=== PATIENT | male | born 1945 | race Caucasian/White ===

== ENCOUNTER 2018-11-14 11:57 | Inpatient (IN) ==
[2018-11-14] MEDS ORDERED: MoRPHine SULFATE 4 MG/ML 1 ML CARP\\VIAL IV PRN ×2 (12:25→19:31)
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
[2018-11-14 12:53] LABS: Basophils # (auto) 0.04 K/uL (0-0.2); Basophils % (auto) 0.3 %; Eosinophils # (auto) 0.11 K/uL (0-0.5); Eosinophils % (auto) 0.8 %; Hematocrit (blood only) 41.1 % (42-52); Hemoglobin 13.7 g/dL (14.0-18.0); Immature Granulocytes # (auto) 0.02 K/uL (0.00-0.02); Immature Granulocytes % (auto) 0.1 %; Lymphocytes # (auto) 1.61 K/uL (1.2-3.4); Lymphocytes % (auto) 11.4 %; Mean Corpuscular Hgb Conc 33.3 g/dL (32-36); Mean Platelet Volume 10.7 fL (7.4-10.4); Monocytes # (auto) 0.85 K/uL (0.11-0.59); Neutrophils # (auto) 11.44 K/uL (1.4-6.5); Neutrophils % (auto) 81.4 %; Platelet Count 253 K/uL (130-400); RDW Standard Deviation 47.1 fL (36.4-46.3); Red Blood Count 4.15 M/uL (4.7-6.1); White Blood Count 14.07 K/uL (4.8-10.8)
[2018-11-14 13:02] LABS: Appearance Urine Clear (Clear); Bilirubin Urine Negative (Negative); Blood Urine Negative (Negative); Color Urine Yellow; Glucose Urine UA Negative (Negative); Ketones Urine Negative (Negative); Leukocyte Esterase Urine Negative (Negative); Nitrite Urine Negative (Negative); Protein Urine Negative (Negative); Specific Gravity Urine 1.014 (1.000-1.030); Urobilinogen Urine Negative (Negative)
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
[2018-11-14 13:16] LABS: Albumin Level 3.9 gm/dl (3.4-5.0); BUN Creatinine Ratio 18.8 (10-20); Calcium 9.3 mg/dl (8.5-10.1); Creatinine Clr Calc Pharmacy 63.4 ml/min; Est GFR (African American) 70.3; Est GFR (Non-African American) 60.7; Potassium 4.8 mmol/L (3.5-5.1)
[2018-11-14 13:19] LABS: Albumin Globulin Ratio 1.3 (0.9-2); Bilirubin,Total 0.6 mg/dl (0.2-1); Globulin 3.1 gm/dl (2.5-4.0)
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
[2018-11-14] MEDS ORDERED: ONDANSETRON INJ 2 MG/ML 2 ML VIAL IV PRN ×3 (15:06→19:31)
[2018-11-14] MEDS ORDERED: MAGNESIUM HYDROXIDE SUSP 30 ML UDC PO PRN (15:06)
[2018-11-14] MEDS ORDERED: MoRPHine SULFATE 2 MG/ML CARP IV PRN (15:06)
[2018-11-14] MEDS ORDERED: D5W AND 1/2NSS 1,000 ML IV SCH (15:15)
--- NOTE | 2018-11-14 15:27 | Anesthesiology Consultation ---
Date of Service November 14, 2018 Assessment & Plan Chart Review Chart Review: Acceptable Risk for Surgery and Patient NOT seen in Pre Admission Testing Consults Requested none ASA [id number] Proposed Anesthesia Anesthesia Type: General Risk / Benefits Reviewed With: PT / POA / Parent / Guardian, Accepts Plan and Informed Consent Obtained History Surgery Operation Date: 11/14/18 16:00 Proposed Procedures p Intramedullary Jose Femur - Ahsan Solares Height/Weight Height: 6 ft 1 in Weight: 82.9 kg Allergies Allergy/AdvReac Type Severity Reaction Status Date / Time No Known Allergies Allergy nka Unverified 11/14/18 13:00 Medications Home Medications Medication Instructions Recorded Confirmed Last Taken coenzyme Q10 [CoQ-10] 30 mg PO QAM 11/14/18 11/14/18 11/14/18 glucos sul [id number] 1 cap PO QAM 11/14/18 11/14/18 11/14/18 [Glucosamine Chondroitin] NPO Date Last Intake of Fluids: 11/14/18 Time Last Intake of Fluids: 07:00 Date Last Intake of Solids: 11/14/18 Time Last Intake of Solids: 07:00 Past Medical History Medical History Vaso vagal episode (Chronic) Exercise / Class Metabolic Activity II 4-5 Yardwork/Stairs/Walk up hill Past Family History Family History Mother Afib Grandfather Stroke Other Family history non-contributory Past Surgical History Surgical History H/O colonoscopy S/P left knee arthroscopy Past Anesthesia History No Hx of Anesthesia Complications and No Family Hx of Anesthesia Complications History of PONV No Hx of PONV and No Hx of Motion Sickness Social History Smoking Status: Never smoker Physical Exam Vital Signs Last Vital Signs Temp 36.8 C 11/14/18 15:10 Pulse 60 11/14/18 15:10 Resp 16 11/14/18 15:10 BP 132/72 11/14/18 15:10 Pulse Ox 99 11/14/18 15:10 Constitutional not obese ENMT Mouth: no dentition abnormality Neck normal visual inspection and trachea midline; neck extension not limited Respiratory normal respiratory effort Auscultation: lungs clear to auscultation bilaterally Cardiovascular Rate/Rhythm: regular rate and regular rhythm Heart Sounds: no murmur Musculoskeletal Spine: normal cervical ROM Neurologic moves all extremities Motor/Sensory: no sensory deficit Psychiatric Orientation: alert and oriented x 3 Testing Laboratory Results 11/14/18 12:31 11/14/18 12:31 Urine Color Yellow 11/14/18 12:54 Urine Appearance Clear (Clear) 11/14/18 12:54 Urine pH 7.0 (4.5-7.5) 11/14/18 12:54 Ur Specific [place] 1.014 (1.000-1.030) 11/14/18 12:54 Urine Protein Negative (Negative) 11/14/18 12:54 Urine Glucose (UA) Negative (Negative) 11/14/18 12:54 Urine Ketones Negative (Negative) 11/14/18 12:54 Urine Nitrite Negative (Negative) 11/14/18 12:54 Ur Leukocyte Esterase Negative (Negative) 11/14/18 12:54 Blood Type B Positive 11/14/18 12:31 Antibody Screen NEGATIVE 11/14/18 12:31 Electrocardiogram Date: 11/14/18 Findings: + SB @ (at 50;? septal OK,age ?) Chest X-Ray Date: 11/14/18 Findings: + NAD
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
[2018-11-14] MEDS ORDERED: CEFAZOLIN 250 MG/ML 1 GM VIAL ONE (16:01)
[2018-11-14] MEDS ORDERED: fentaNYL citrate 100 MCG/2 ML VIAL ONE (16:04)
[2018-11-14] MEDS ORDERED: MIDAZOLAM HCL 1 MG/ML 2ML VIAL ONE (16:05)
[2018-11-14] MEDS ORDERED: PROPOFOL IV EMULSION 10 MG/ML 20 ML VIAL IV ONE (16:07)
[2018-11-14] MEDS ORDERED: SUCCINYLCHOLINE 100MG/5ML SYR ONE (16:08)
[2018-11-14] MEDS ORDERED: CEFAZOLIN 2000MG 2,000 MG/15 ML SYR IV ONE (16:56)
[2018-11-14] MEDS ORDERED: CISATRACURIUM BESYLATE IV SOLN 2 MG/ML 10 ML VIAL IV ONE (18:24)
[2018-11-14] MEDS ORDERED: ePHEDrine sulfate 50 MG/ML SYR ONE (19:01)
[2018-11-14] MEDS ORDERED: GLYCOPYRROLATE 0.2 MG/ML VIAL ONE (19:01)
[2018-11-14] MEDS ORDERED: NEOSTIGMINE METHYLSULFATE 5 MG/5 ML SYR ONE (19:02)
--- NOTE | 2018-11-14 19:24 | Post Operative Brief Note ---
PG Immediate Post Op with CF Date of Surgery November 14, 2018 Pre & Post Diagnosis Operation Date: 11/14/18 16:00 Pre-Op Diagnosis: FEMUR FRACTURE Post-Op Diagnosis: FEMUR FRACTURE intertrochanteric - left Procedure Operation Date: 11/14/18 16:00 Actual Procedures p Intramedullary Jose Femur(Left) - Ahsan Solares Surgeon Ahsan Solares Tobacco Classer none Estimated Blood Loss 400 Findings See Below (comminuted basicervical to intertroch extension) Specimens Specimen Description: NONE PER SURGEON
--- NOTE | 2018-11-14 19:26 | Fluoroscopy Report ---
FL hip LT 2-3V CLINICAL HISTORY: Left trochanteric nail. COMPARISON STUDY: Left femur radiographs November 14, 2018 at 12:04 PM. FLUOROSCOPY TIME: 4 minutes and 2 seconds. FLUOROSCOPIC IMAGES: 11. FINDINGS: These images demonstrate placement of a trochanteric nail. Hardware fixates the intertrocha nteric fracture of the left femur. Distal screw is noted. Fracture alignment has improved. The hardwa re is intact. There are no unexpected radiopaque foreign bodies. IMPRESSION: Expected findings following internal fixation of the intertrochanteric fracture of the l eft femur. Electronically signed by: Prasanna Rangel M.D. 11/14/2018 7:25 PM
[2018-11-14] MEDS ORDERED: FLUMAZENIL 0.1 MG/1 ML 10 ML VIAL IV PRN (19:27)
[2018-11-14] MEDS ORDERED: HYDROmorphone INJ 1 MG/ML SYRINGE IV PRN (19:27)
[2018-11-14] MEDS ORDERED: PROMETHAZINE HCL 12.5 MG in SODIUM CHLORIDE 0.9% 50 ML IV PRN (19:27)
[2018-11-14] MEDS ORDERED: ePHEDrine sulfate 50 MG/ML AMP IV PRN (19:27)
[2018-11-14] MEDS ORDERED: NALOXONE HCL 0.4 MG/1 ML VIAL/CARP IV PRN ×2 (19:27→19:31)
[2018-11-14] MEDS ORDERED: ATROPINE SULFATE 0.1 MG/ML 10ML SYR IV PRN (19:27)
[2018-11-14] MEDS ORDERED: COUGH DROP (SUGAR FREE) LOZ 24 LOZ/1 BOX BUCCAL PRN (19:31)
[2018-11-14] MEDS ORDERED: OXYCODONE HCL IR 5 MG TAB (IMMEDIATE RELEASE) PO PRN ×2 (19:31)
[2018-11-14] MEDS ORDERED: ACETAMINOPHEN 325 MG TAB PO PRN (19:31)
[2018-11-14] MEDS ORDERED: HYDROmorphone INJ 1 MG/ML SYRINGE ONE (19:37)
--- NOTE | 2018-11-14 20:09 | Anesthesiology Progress Note ---
Date of Service November 14, 2018 Anesthesia Post Procedure Vital Signs Vital Signs: Temp Pulse Pulse Pulse Resp BP BP 11/14/18 19:47 36.1 C L 54 L 19 107/54 L 11/14/18 15:10 36.8 C 60 16 132/72 11/14/18 14:34 55 L 16 112/70 11/14/18 13:21 61 18 121/71 11/14/18 12:25 53 L 11/14/18 12:07 36.5 C 57 L 18 140/87 Pulse Ox 11/14/18 19:47 100 11/14/18 15:10 99 11/14/18 14:34 100 11/14/18 13:21 98 11/14/18 12:25 98 11/14/18 12:07 99 Pain Intensity Left Hip: Pain Intensity: 5 Transfer of Care Handoff Completed per policy Notes Mental Status: alert / awake / arousable Patient Amnestic to Procedure: Yes Nausea / Vomiting: adequately controlled Pain: adequately controlled Airway Patency, RR, SpO2: stable & adequate BP & HR: stable & adequate Hydration State: stable & adequate Anesthetic Complications: no major complications apparent
--- NOTE | 2018-11-14 20:32 | XRay Report ---
XR femur LT 2V routine CLINICAL HISTORY: Postoperative evaluation. COMPARISON: Left femur radiographs November 14, 2018. FINDINGS: These images demonstrate placement of a trochanteric nail within the left femur with dista l screw. Alignment of the intertrochanteric fracture has improved. Hardware is intact. There are no u nexpected radiopaque foreign bodies. IMPRESSION: Expected findings following internal fixation of the intertrochanteric fracture of the le ft femur. Electronically signed by: Prasanna Rangel M.D. 11/14/2018 8:31 PM
[2018-11-14] MEDS: ENOXAPARIN INJ 40 MG/0.4 ML SYR SQ SCH (21:43)
[2018-11-14] MEDS ORDERED: Nursing to Pharmacy Communication ONE (21:45)
[2018-11-14] MEDS: DOCUSATE SODIUM 100 MG CAP PO SCH (22:16)
[2018-11-14] MEDS: SENNA 8.6 MG TAB PO SCH (22:16)
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
[2018-11-15] MEDS: CEFAZOLIN 2000MG 2,000 MG/15 ML SYR IV SCH ×2 (00:39→09:42)
[2018-11-15] MEDS ORDERED: SODIUM CHLORIDE 0.9% 1000ML 1,000 ML IV ONE (01:06)
[2018-11-15 01:30] LABS: Hematocrit (blood only) 29.2 % (42-52); Hemoglobin 9.7 g/dL (14.0-18.0); Immature Granulocytes # (auto) 0.03 K/uL (0.00-0.02); Immature Granulocytes % (auto) 0.2 %; Lymphocytes # (auto) 0.78 K/uL (1.2-3.4); Lymphocytes % (auto) 5.8 %; Mean Corpuscular Hemoglobin 32.9 pg (25-34); Mean Corpuscular Hgb Conc 33.2 g/dL (32-36); Mean Platelet Volume 9.8 fL (7.4-10.4); Monocytes # (auto) 0.76 K/uL (0.11-0.59); Monocytes % (auto) 5.6 %; Neutrophils # (auto) 11.93 K/uL (1.4-6.5); Neutrophils % (auto) 88.4 %; Platelet Count 172 K/uL (130-400); RDW Coefficient of Variation 13.1 % (11.5-14.5); RDW Standard Deviation 47.5 fL (36.4-46.3); Red Blood Count 2.95 M/uL (4.7-6.1)
[2018-11-15] MEDS: LACTATED RINGER'S 1,000 ML IV SCH ×3 (03:23→13:19)
[2018-11-15 06:48] LABS: Basophils # (auto) 0.01 K/uL (0-0.2); Basophils % (auto) 0.1 %; Hematocrit (blood only) 26.3 % (42-52); Hemoglobin 8.8 g/dL (14.0-18.0); Immature Granulocytes # (auto) 0.02 K/uL (0.00-0.02); Immature Granulocytes % (auto) 0.2 %; Lymphocytes # (auto) 1.04 K/uL (1.2-3.4); Lymphocytes % (auto) 10.9 %; Mean Corpuscular Hemoglobin 32.8 pg (25-34); Mean Corpuscular Hgb Conc 33.5 g/dL (32-36); Mean Corpuscular Volume 98.1 fL (80-100); Mean Platelet Volume 10.2 fL (7.4-10.4); Monocytes % (auto) 8.4 %; Neutrophils # (auto) 7.67 K/uL (1.4-6.5); Neutrophils % (auto) 80.4 %; Platelet Count 181 K/uL (130-400); RDW Coefficient of Variation 13.2 % (11.5-14.5); RDW Standard Deviation 46.8 fL (36.4-46.3); Red Blood Count 2.68 M/uL (4.7-6.1); White Blood Count 9.54 K/uL (4.8-10.8)
[2018-11-15 07:18] LABS: BUN Creatinine Ratio 16.1 (10-20); Calcium 7.7 mg/dl (8.5-10.1); Creatinine Clr Calc Pharmacy 56.7 ml/min; Est GFR (African American) 68.2; Est GFR (Non-African American) 58.9; Potassium 4.2 mmol/L (3.5-5.1)
[2018-11-15] MEDS: DOCUSATE SODIUM 100 MG CAP PO SCH ×2 (09:40→21:16)
[2018-11-15] MEDS: ENOXAPARIN INJ 40 MG/0.4 ML SYR SQ SCH (09:41)
--- NOTE | 2018-11-15 10:05 | Anesthesiology Progress Note ---
Date of Service November 15, 2018 Anesthesia Post Procedure Vital Signs Vital Signs: Temp Pulse Pulse Pulse Pulse Pulse Resp 11/15/18 07:00 36.8 C 71 16 11/15/18 03:37 36.9 C 70 18 11/15/18 00:50 62 11/15/18 00:35 63 11/15/18 00:30 11/15/18 00:25 56 L 12 11/15/18 00:00 36.4 C L 69 17 11/14/18 23:00 36.3 C L 87 18 11/14/18 21:47 37.3 C 54 L 17 11/14/18 21:28 36.3 C L 63 16 11/14/18 21:00 36.4 C L 47 L 16 11/14/18 20:50 36.4 C L 47 L 16 11/14/18 20:35 36.5 C 52 L 16 11/14/18 20:25 56 L 16 11/14/18 20:15 55 L 16 11/14/18 20:05 54 L 16 11/14/18 19:55 50 L 16 11/14/18 19:45 49 L 16 11/14/18 19:35 52 L 16 11/14/18 19:26 36.1 C L 54 L 19 11/14/18 15:10 36.8 C 60 16 11/14/18 14:34 55 L 16 11/14/18 13:21 61 18 11/14/18 12:25 53 L 11/14/18 12:07 36.5 C 57 L 18 BP BP BP Pulse Ox 11/15/18 07:00 102/55 L 95 11/15/18 03:37 94/55 L 98 11/15/18 00:50 92/58 L 11/15/18 00:35 78/49 L 11/15/18 00:30 75/40 L 11/15/18 00:25 68/43 L 95 11/15/18 00:00 96/57 L 97 11/14/18 23:00 121/73 97 11/14/18 21:47 95/56 L 99 11/14/18 21:28 105/66 97 11/14/18 21:00 91/52 L 99 11/14/18 20:50 91/52 L 99 11/14/18 20:35 99/53 L 98 11/14/18 20:25 95/50 L 100 11/14/18 20:15 110/56 L 100 11/14/18 20:05 82/56 L 100 11/14/18 19:55 111/61 98 11/14/18 19:45 108/64 98 11/14/18 19:35 96/55 L 98 11/14/18 19:26 107/54 L 100 11/14/18 15:10 132/72 99 11/14/18 14:34 112/70 100 11/14/18 13:21 121/71 98 11/14/18 12:25 98 11/14/18 12:07 140/87 99 Pain Intensity Left Hip: Pain Intensity: 2 Notes Mental Status: alert / awake / arousable and participated in evaluation Patient Amnestic to Procedure: Yes Nausea / Vomiting: adequately controlled Pain: adequately controlled Airway Patency, RR, SpO2: stable & adequate BP & HR: stable & adequate Hydration State: stable & adequate Anesthetic Complications: no major complications apparent
--- NOTE | 2018-11-15 10:14 | Orthopedic Progress Note ---
Date of Service November 15, 2018 Assessment & Plan (1) Closed fracture of left hip: Making good progress on postop day 1. Today should focus on mobilization. He did have expected drop in his blood counts due to blood loss in the fracture and the surgery. He will be after monitored closely. Like to avoid blood product if possible. Should focus on nutrition and gradual mobilization with assistance. Goal for today is out of bed Complete 24-hour antibiotics Continue DVT prophylaxis Activity: Weightbearing as tolerated with assistance. PT OT today Subjective Aubrey reports that he feels well today. His pain is tolerable. He ate a good breakfast. He set up at the edge of the bed but does occasionally feel lightheaded. He states this is consistent with his vasovagal history he states this is consistent with his vasovagal history and looks forward to attempting more mobilization this afternoon with therapy Review of Systems Constitutional: no fever, no chills and no sweats Cardiovascular: no chest pain and no dyspnea Physical Exam Physical Exam: Sitting up in bed, alert and oriented, in no acute distress Left lower extremity the hip dressing is clean dry and intact. He is full active range of motion of his ankle and toes. Sensation is intact to light touch and he has 2+ DP and PT pulses Results & Data Vital Signs (Past 12 Hours) Vital Signs Temp Pulse Pulse Pulse Resp BP BP 11/15/18 07:00 36.8 C 71 16 102/55 L 11/15/18 03:37 36.9 C 70 18 94/55 L 11/15/18 00:50 62 92/58 L 11/15/18 00:35 63 78/49 L 11/15/18 00:30 75/40 L 11/15/18 00:25 56 L 12 68/43 L 11/15/18 00:00 36.4 C L 69 17 96/57 L 11/14/18 23:00 36.3 C L 87 18 121/73 Pulse Ox 11/15/18 07:00 95 11/15/18 03:37 98 11/15/18 00:50 11/15/18 00:35 11/15/18 00:30 11/15/18 00:25 95 11/15/18 00:00 97 11/14/18 23:00 97 Labs: Hematocrit 26.3 hemoglobin 8.6 Radiographs: Acceptable alignment and placement of the cephalo-medullary nail PG Care Time/CCT Total # of Minutes Spent Total Time Spent with Patient: Total time spent is greater than 50% in coordinat ion of care (as documented) at patient's floor/unit and/or counseling patient: (1) Closed fracture of left hip Encounter type: initial encounter Qualified Code(s): S72.002A - Fracture of unspecified part of neck of left femur, initial encounter for closed fracture
[2018-11-15 13:18] LABS: Hematocrit (blood only) 28.4 % (42-52); Hemoglobin 9.5 g/dL (14.0-18.0)
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
[2018-11-15] MEDS: SENNA 8.6 MG TAB PO SCH (21:16)
[2018-11-16] MEDS: ENOXAPARIN INJ 40 MG/0.4 ML SYR SQ SCH (07:54)
[2018-11-16] MEDS: DOCUSATE SODIUM 100 MG CAP PO SCH ×3 (07:55→20:43)
[2018-11-16 07:57] LABS: Hematocrit (blood only) 26.3 % (42-52); Hemoglobin 8.8 g/dL (14.0-18.0); Mean Corpuscular Hemoglobin 33.2 pg (25-34); Mean Corpuscular Hgb Conc 33.5 g/dL (32-36); Mean Corpuscular Volume 99.2 fL (80-100); Mean Platelet Volume 10.8 fL (7.4-10.4); Platelet Count 176 K/uL (130-400); RDW Coefficient of Variation 13.2 % (11.5-14.5); RDW Standard Deviation 47.6 fL (36.4-46.3); Red Blood Count 2.65 M/uL (4.7-6.1); White Blood Count 10.89 K/uL (4.8-10.8)
--- NOTE | 2018-11-16 09:54 | Orthopedic Progress Note ---
Date of Service November 16, 2018 Assessment & Plan (1) Closed fracture of left hip: Making slow steady progress. He is not mobilizing as quickly as he thought he would be but this is expected with blood loss from his injury and surgery. Is he has vasovagal symptoms at baseline and they are likely exacerbated by the recent trauma blood loss. I agree with medicine and appreciate their input in regards to the postoperative anemia. He will likely have enough reserve and recover from this without addition of blood product. We can follow-up and see how he does. A lot will depend on physical therapy today. Continue DVT prophylaxis He refused Lovenox for the past 2 mornings. I think it is reasonable to change aspirin, which will bring more compliant since it is an oral agent. Continue SCDs and out of bed as tolerated Continue pain management as needed. He should be weightbearing as tolerated in this physical therapy as tolerated Dispo: As per physical therapy and occupational therapy recommendations. We need to make sure his postoperative anemia symptoms are resolved Subjective Seen at the bedside today with his family and physical therapy in the room. He reports a comfortable night. He continues to manage his pain without narcotics. He is refusing Lovenox which was her DVT prophylaxis. He was hoping event were active and nursing states that he is consistently using SCDs. Otherwise, he continues to very well. He is slow to progress with mobilization because he is having low blood pressures and vasovagal symptoms. He is encouraged to participate with physical therapy today Review of Systems Constitutional: no fever and no chills Respiratory: no cough, no dyspnea and no dyspnea on exertion Cardiovascular: + lightheadedness; no chest pain and no palpitations Gastrointestinal: no abdominal pain, no nausea, no vomiting, no constipation and no diarrhea/loose stools Genitourinary: no dysuria Musculoskeletal: + joint pain (with movement - controlled with medications) Integumentary: no rash Neurologic: no tingling and no numbness Physical Exam Physical Exam: He appears well, is alert and oriented, and is accompanied by family and friends as well as a therapist today Examination of the left lower extremity incision well approximated distal thigh incision without erythema or drainage. The proximal sites are well dressed. He is full active range of motion of his ankle. He is expected thigh swelling. Results & Data Vital Signs (Past 12 Hours) Vital Signs Temp Pulse Pulse Resp BP Pulse Ox 11/16/18 07:39 36.8 C 81 18 135/70 94 11/15/18 23:45 36.9 C 89 16 101/64 94 Laboratory Tests 11/14/18 11/15/18 11/15/18 12:31 06:30 13:09 Hgb 13.7 L 8.8 L 9.5 L Hct 41.1 L 26.3 L 28.4 L 11/16/18 07:31 Hgb 8.8 L Hct 26.3 L PG Care Time/CCT Total # of Minutes Spent Total Time Spent with Patient: Total time spent is greater than 50% in coordination of care (as documented) at patient's floor/unit and/or counseling patient: (1) Closed fracture of left hip Encounter type: initial encounter Qualified Code(s): S72.002A - Fracture of unspecified part of neck of left femur, initial encounter for closed fracture
[2018-11-16] MEDS: ACETAMINOPHEN 325 MG TAB PO PRN (11:05)
[2018-11-16] MEDS ORDERED: SODIUM CHLORIDE 0.9% 500 ML IV ONE (11:15)
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
[2018-11-16] MEDS: SENNA 8.6 MG TAB PO SCH ×2 (20:41→20:43)
[2018-11-17 07:32] LABS: Basophils # (auto) 0.03 K/uL (0-0.2); Basophils % (auto) 0.3 %; Eosinophils # (auto) 0.05 K/uL (0-0.5); Eosinophils % (auto) 0.4 %; Hemoglobin 8.4 g/dL (14.0-18.0); Immature Granulocytes # (auto) 0.03 K/uL (0.00-0.02); Immature Granulocytes % (auto) 0.3 %; Lymphocytes # (auto) 1.85 K/uL (1.2-3.4); Lymphocytes % (auto) 16.4 %; Mean Corpuscular Hemoglobin 31.8 pg (25-34); Mean Corpuscular Hgb Conc 32.3 g/dL (32-36); Mean Corpuscular Volume 98.5 fL (80-100); Mean Platelet Volume 10.5 fL (7.4-10.4); Monocytes # (auto) 1.05 K/uL (0.11-0.59); Monocytes % (auto) 9.3 %; Neutrophils # (auto) 8.26 K/uL (1.4-6.5); Neutrophils % (auto) 73.3 %; Platelet Count 188 K/uL (130-400); RDW Standard Deviation 46.8 fL (36.4-46.3); Red Blood Count 2.64 M/uL (4.7-6.1); White Blood Count 11.27 K/uL (4.8-10.8)
[2018-11-17 08:09] LABS: BUN Creatinine Ratio 10.8 (10-20); Calcium 8.5 mg/dl (8.5-10.1); Creatinine Clr Calc Pharmacy 69.2 ml/min; Est GFR (African American) 86.8; Est GFR (Non-African American) 74.9; Potassium 3.9 mmol/L (3.5-5.1)
[2018-11-17] MEDS: ASPIRIN 325 MG ECTAB PO SCH (11:09)
[2018-11-17] MEDS: ENOXAPARIN INJ 40 MG/0.4 ML SYR SQ SCH ×2 (11:09→11:11)
[2018-11-17] MEDS ORDERED: SODIUM CHLORIDE 0.9% 250 ML IV PRN (11:43)
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
[2018-11-17] MEDS: FOLIC ACID 1 MG TAB PO SCH (11:48)
[2018-11-17] MEDS: DOCUSATE SODIUM 100 MG CAP PO SCH ×2 (11:48→21:40)
[2018-11-17] MEDS: FERROUS SULFATE 325 MG TAB PO SCH ×2 (11:49→17:29)
--- NOTE | 2018-11-17 17:02 | Orthopedic Progress Note ---
Date of Service November 17, 2018 Results & Data Vital Signs (Past 12 Hours) Vital Signs Temp Pulse Pulse Pulse Resp BP BP 11/17/18 16:00 37.1 C 79 18 125/66 11/17/18 14:28 36.9 C 81 18 125/61 11/17/18 14:24 37.1 C 82 16 132/60 11/17/18 13:58 36.6 C 87 16 132/60 11/17/18 13:43 36.3 C L 81 16 123/67 11/17/18 13:28 36.6 C 65 16 123/71 11/17/18 07:11 36.8 C 79 18 129/67 Pulse Ox 11/17/18 16:00 95 11/17/18 14:28 97 11/17/18 14:24 95 11/17/18 13:58 98 11/17/18 13:43 98 11/17/18 13:28 11/17/18 07:11 96 Laboratory Results Laboratory Tests 11/17/18 07:08 Hgb 8.4 L Hct 26.0 L PG Care Time/CCT Total # of Minutes Spent Total Time Spent with Patient: Total time spent is greater than 50% in coordination of care (as documented) at patient's floor/unit and/or counseling patient:
[2018-11-17] MEDS: SENNA 8.6 MG TAB PO SCH (21:40)
[2018-11-18 07:11] LABS: Hematocrit (blood only) 28.6 % (42-52); Hemoglobin 9.4 g/dL (14.0-18.0); Mean Corpuscular Hemoglobin 32.2 pg (25-34); Mean Corpuscular Hgb Conc 32.9 g/dL (32-36); Mean Corpuscular Volume 97.9 fL (80-100); Mean Platelet Volume 10.6 fL (7.4-10.4); Platelet Count 201 K/uL (130-400); RDW Coefficient of Variation 13.2 % (11.5-14.5); RDW Standard Deviation 47.1 fL (36.4-46.3); Red Blood Count 2.92 M/uL (4.7-6.1); White Blood Count 9.37 K/uL (4.8-10.8)
[2018-11-18 07:36] LABS: BUN Creatinine Ratio 14.1 (10-20); Calcium 8.6 mg/dl (8.5-10.1); Creatinine Clr Calc Pharmacy 67.2 ml/min; Est GFR (African American) 83.7; Est GFR (Non-African American) 72.2; Potassium 3.8 mmol/L (3.5-5.1)
[2018-11-18 07:46] LABS: Thyroid Stimulating Hormone 1.3 uIu/ml (0.300-4.500)
[2018-11-18] MEDS: ENOXAPARIN INJ 40 MG/0.4 ML SYR SQ SCH (08:20)
[2018-11-18] MEDS: FERROUS SULFATE 325 MG TAB PO SCH ×2 (08:21→16:16)
[2018-11-18] MEDS: ASPIRIN 325 MG ECTAB PO SCH (08:21)
[2018-11-18] MEDS: DOCUSATE SODIUM 100 MG CAP PO SCH ×2 (08:21→20:51)
[2018-11-18] MEDS: FOLIC ACID 1 MG TAB PO SCH (08:22)
[2018-11-18] MEDS: ACETAMINOPHEN 325 MG TAB PO PRN ×2 (08:24→12:30)
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
[2018-11-18] MEDS: SENNA 8.6 MG TAB PO SCH (20:51)
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
[2018-11-19 06:33] LABS: Basophils # (auto) 0.04 K/uL (0-0.2); Basophils % (auto) 0.6 %; Eosinophils # (auto) 0.28 K/uL (0-0.5); Eosinophils % (auto) 3.9 %; Hematocrit (blood only) 26.6 % (42-52); Hemoglobin 8.9 g/dL (14.0-18.0); Immature Granulocytes # (auto) 0.01 K/uL (0.00-0.02); Immature Granulocytes % (auto) 0.1 %; Lymphocytes # (auto) 1.47 K/uL (1.2-3.4); Lymphocytes % (auto) 20.4 %; Mean Corpuscular Hemoglobin 32.4 pg (25-34); Mean Corpuscular Hgb Conc 33.5 g/dL (32-36); Mean Corpuscular Volume 96.7 fL (80-100); Mean Platelet Volume 9.3 fL (7.4-10.4); Monocytes # (auto) 0.74 K/uL (0.11-0.59); Monocytes % (auto) 10.2 %; Neutrophils # (auto) 4.68 K/uL (1.4-6.5); Neutrophils % (auto) 64.8 %; Platelet Count 216 K/uL (130-400); RDW Coefficient of Variation 13.2 % (11.5-14.5); RDW Standard Deviation 45.9 fL (36.4-46.3); Red Blood Count 2.75 M/uL (4.7-6.1); White Blood Count 7.22 K/uL (4.8-10.8)
[2018-11-19] MEDS: ACETAMINOPHEN 325 MG TAB PO PRN ×2 (08:08→14:13)
[2018-11-19] MEDS: FERROUS SULFATE 325 MG TAB PO SCH (08:10)
[2018-11-19] MEDS: FOLIC ACID 1 MG TAB PO SCH (08:10)
[2018-11-19] MEDS: ENOXAPARIN INJ 40 MG/0.4 ML SYR SQ SCH (08:10)
[2018-11-19] MEDS: ASPIRIN 325 MG ECTAB PO SCH (08:10)
[2018-11-19] MEDS: DOCUSATE SODIUM 100 MG CAP PO SCH (08:10)
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
== END 2018-11-19 14:32 | DRG 481 ==
LOC: ED 11:57 → 3W 14:07 → SUATTDRO 14:07 → 3W 14:45